=== PATIENT | male | born 1975 | race Caucasian/White ===

== ENCOUNTER 2017-10-17 09:48 | Observation (INO) ==
--- NOTE | 2017-10-17 10:13 | History & Physical Report ---
History of Present Illness Date: 10/17/17 Chief complaint: chest pain HPI: Mansoor is a 42 yo male who presented to Dr Vallejo's office this am with acute onset of chest tightness with radiation to his back occurring approx 3 hrs prior to presentation to clinic. Chest tightness is worse with deep inspiration , with minimal shortness of breath, no radiation to the neck or jaw or shoulder. Patient is otherwise healthy other than history of GERD and smoking. He denies any similar episode in the past. Denies any TIA or CVA symptoms. In the office, EKG showed normal sinus rhythm, no acute ischemic changes. CXR appeared normal. Patient received sublingual nitroglycerin 0.4 mg chest pain resolved completely, pain re-occurred and patient was given a second nitroglycerin with some relief. His vital signs were stable: blood pressure 130/ 80 with a pulse of 86, temperature 98.6, O2 sat 98% on RA. Dr. Vallejo contacted Dr. Marinelli to arrange a direct admit for observation. Dr. Vallejo had also discussed case with Dr. Greenwood who recommended hospitalist admission with consult to him. Patient has a h/o depression/anxiety. Previously on antidepressants, but states he stopped them because he didn't have insurance. He states that he has "good days and bad days." He has never had CP r/t his anxiety. He states he has GERD but only takes Prevacid for sxs which is approx 3x/wk. Review of Systems All systems PM: 10-point ROS was reviewed, no additional remarkable complaints except (chest and back tightness with deep breathing, a.m. "smoker's cough") Past Medical History Medical History: Medical History (Last Updated 10/17/17 @ 11:09 by VICKIE Geronimo) Anxiety and depression GERD (gastroesophageal reflux disease) Headache PTSD (post-traumatic stress disorder) Surgical History: vasectomy Family History: Family History F - alive and well M - alive and well Family History: No Significant Family History - Social History Smoking status: Current every day smoker (1ppd sicne age 15) Substance use type: does not use Alcohol intake frequency: a few times a month Current occupational status: employed ([employer] in [place]) Current residence: Apartment/Private Home Social history: PCP - Dr. Collier Medications Home Medications Medication Instructions Recorded Confirmed Type Prevacid 1 tab PO Q4D PRN 10/17/17 10/17/17 History Allergies Allergy/AdvReac Type Severity Reaction Status Date / Time amoxicillin Allergy Verified 10/17/17 10:53 Penicillins Allergy Verified 10/17/17 10:53 rofecoxib [From Vioxx] Allergy Verified 10/17/17 10:53 Exam - Constitutional Present: no acute distress, well nourished, well developed - Routine HEENT Exam Head: Present: normocephalic, atraumatic Eye: Present: EOMI, PERRL ENT: Present: mucous membranes moist, oropharynx clear - Routine Neck Exam Present: supple. Absent: JVD, carotid bruit, lymphadenopathy, thyromegaly - Routine Respiratory Exam Present: CTA bilaterally. Absent: wheezes - Routine Cardiovascular Exam Present: RRR, no murmur - Routine Abdominal Exam Present: soft, normoactive bowel sounds. Absent: tenderness, distended - Routine Extremities Exam Present: no edema, normal capillary refill - Routine Skin Exam Present: dry, warm - Routine Neurological Exam Present: alert, oriented X3, CN II-XII intact - Routine Psychiatric Exam Present: normal affect, cooperative, anxious Results - Labs CBC & Chem 7: 10/17/17 10:37 10/17/17 10:37 - Imaging and Cardiology Chest x-ray Additional comments: Date of Exam: 10/17/17 INDICATION: R07.89 Other chest pain PROCEDURE: CHEST 2-VIEWS UPRIGHT (PA & LAT) FINDINGS: The lungs are clear without evidence of focal abnormal airspace opacity. There is no pleural effusion or pneumothorax. The heart size, mediastinal contours and pulmonary vascularity are within normal limits. There is no significant skeletal abnormality. IMPRESSION: No acute cardiopulmonary disease. Assessment and Plan Assessment and Plan: Assessment Acute chest pain - seems pleuritic. R/o cardiac. GERD Anxiety/Depression Leukocytosis -POA Plan Admit for OBS for CP r/o. CXR and EKG reviewed from Dr. Vallejo's office. Repeat EKG on admission. Check CBC, CMP, Troponin, D Dimer. Consult to Dr. Greenwood. Serial troponins. Telemetry. RT consult for smoking cessation. Nicotine patch if desired. Protonix for GERD and GI ppx. SCD's for DVT ppx. Full code. PCP-Dr Collier Discussed w/ Dr Marinelli, Divya Branham, PROGRAM OR PROJECT ADMINISTRATOR for Dr. Greenwood and nursing staff. 10/17/2017-2:50 PM-I examined the patient independently. I reviewed this chart, the patient history, and the PROGRAM OR PROJECT ADMINISTRATOR's/PA's documented findings as above. We discussed and formulated the assessment and plan as above with the additions below.-Dr. Marinelli Patient was seen this afternoon in his room. He stated he continued to have some pain in the right anterior and right lower posterior chest with deep inspiration. He states this started this morning. It improved with nitroglycerin and Dr. Lyons's office, but did not completely go away. He states he has a chronic "smoker's cough in the morning" that is unchanged. He denies any dyspnea. He denies any recent infections. He denies fevers or chills. He denies any new physical activity that might of caused a muscle strain. He has not had any recent injury that he is aware of. He's had no nausea or vomiting. He states he has frequent heartburn, but this felt very different. He is not having heartburn now. One of his grandfathers had bypass surgery, but he does not think it was in his 50s. On exam he is alert and oriented and in no acute distress. Neck is supple and carotids are silent. Chest is clear to auscultation bilaterally. Cardiovascular reveals a regular rate and rhythm without murmur S3, S4 or rubs. Abdomen is soft and nontender. Extremities reveal no edema. Radial pulses are equal bilaterally. Skin is warm and dry and without rashes. Pertinent lab includes mild elevated white count of 11.4. Hemoglobin and platelets are normal. Neutrophils are 75%. D-dimer is less than 150 Comprehensive metabolic is entirely normal other than glucose of 138 and chloride of 110. Troponin is less than 0.012. Liver enzymes are normal. Triglycerides are elevated at 288, total cholesterol 164, LDL 83, HDL 23, VLDL 57. This was done nonfasting. Chest x-ray done today to clinic shows no acute cardiopulmonary disease EKG reveals normal sinus rhythm Impression Chest pain, most likely pleuritic Anxiety Tobaccoism History of hyperlipidemia History of migraine headaches Frequent GERD-current pain is very different Plan Continue telemetry. Serial troponin. Discuss with Dr. Greenwood. Hopefully home soon if testing is normal. Patient is quite concerned about cost of hospitalization due to lack of health insurance. I've asked the counseling case manager to discuss this with him. DVT Prophylaxis: SCD's GI Prophylaxis: Protonix Resuscitation Status: Full Code - Physician Narrative Physician: Kendra Marinelli MD Narrative: Date: 10/17/17 Time: 1006 Hospital Course Summary Disclaimer: The visit summary below is not to be considered part of the above Progress Note. Hospital Course: 10/17/17 Admit for OBS for CP r/o. CXR and EKG reviewed from Dr. Vallejo's office. Repeat EKG on admission. Check CBC, CMP, Troponin, D Dimer. Consult to Dr. Greenwood. Serial troponins. Telemetry. RT consult for smoking cessation. Nicotine patch if desired. Protonix for GERD and GI ppx. SCD's for DVT ppx. Full code. PCP-Dr Collier
[2017-10-17 10:22] VITALS: BMI 24.3
[2017-10-17] MEDS ORDERED: PANTOPRAZOLE 40 MG INJECTION IVP SCH (11:15)
[2017-10-17] MEDS ORDERED: NICOTINE 21 MG PATCH TD PRN (11:16)
[2017-10-17] MEDS ORDERED: NICOTINE PATCH REMOVAL TD PRN (11:16)
--- NOTE | 2017-10-17 13:51 | Cardiology Consult Note ---
<Justina Branham - Last Filed: 10/17/17 14:08> History of Present Illness Consult date: 10/17/17 Requesting physician: Kendra Marinelli Consult reason: chest pain Chief complaint: Chest pain History of present illness: Patient reports awakening this am with substernal pressure/internal ache radiating to his back. Denies associated diaphoresis or nausea. He denies previous similar symptoms. He got up and attempted his normal AM routine, due to persistent pain he decided to present to his PCP office for medical eval. He saw Dr. Zepeda, he was given one sl nitro with resolution of anterior chest pain and then a second sl nitro relieved the back pain. Dr. Greenwood was contacted and he was brought to [facility] [place] [facility] for ACS rule out. He is a normal weight 42yo male, who smokes 1 ppd, a personal hx of HLD. He reports anxiety/depression with recent unemployment and high stress. He has migraines 5-6 times a year for which he treats with Naproxen sodium. He admits a GERD history of 20 years, takes PPI 3-4 weekly. His paternal grandfather had CAD with CABG. Review of Systems All systems PM: 10-point ROS was reviewed, no additional remarkable complaints except - Cardiovascular Cardiovascular: Present: chest pain PFSH Patient Stated Medical History Migraine Yes Heart Murmur Yes Bronchitis Yes Pneumonia Yes Gastroesophageal Reflux Yes: on previcid Disease Hx Kidney Stones Yes Depression Yes Post Traumatic Stress Disorder Yes Substance Use Disorder Yes: marijuana Clinic Medical History (Last Updated 10/17/17 @ 11:09 by VICKIE Geronimo) Anxiety and depression (Acute Medical) GERD (gastroesophageal reflux disease) (Chronic Medical) Headache (Chronic Medical) PTSD (post-traumatic stress disorder) (Chronic Medical) Surgical History: vasectomy Family History: Family History (Last Updated 11/25/16 @ 08:54 by SANDRITA Rubin) Unknown Diabetes Heart trouble Cancer Kidney disease - Social History Smoking status: Current every day smoker (1ppd sicne age 15) Substance use type: does not use Alcohol intake frequency: a few times a month Current occupational status: employed ([employer] in [place]) Current residence: Apartment/Private Home Medications Home Medications Medication Instructions Recorded Confirmed Type Naproxen Sodium [Aleve] 1 cap PO BIDWM 5 Days #10 cap 10/17/17 Rx Prevacid 1 tab PO Q4D PRN 10/17/17 10/17/17 History Allergies Allergy/AdvReac Type Severity Reaction Status Date / Time amoxicillin Allergy Verified 10/17/17 10:53 Penicillins Allergy Verified 10/17/17 10:53 rofecoxib [From Vioxx] Allergy Verified 10/17/17 10:53 Exam Vital signs: Temperature 96.6 F L 10/17/17 10:33 Pulse Rate 68 10/17/17 10:33 Respiratory Rate 16 10/17/17 10:33 Blood Pressure 145/88 H 10/17/17 10:33 Pulse Oximetry 96 10/17/17 10:33 - Constitutional no acute distress, well nourished, cooperative - Routine HEENT Exam Head: Present: normocephalic, atraumatic Eye: Present: PERRL ENT: Present: mucous membranes moist Nose: moist mucous membranes - Routine Neck Exam Absent: JVD, carotid bruit - Routine Respiratory Exam Present: CTA bilaterally - Routine Cardiovascular Exam Present: RRR - Routine Abdominal Exam Present: soft, normoactive bowel sounds - Routine Back/Spine/Pelvis Exam Back/Spine: Present: full ROM - Routine Skin Exam Present: intact - Routine Neurological Exam Present: alert, oriented X3 - Routine Psychiatric Exam Present: normal affect, normal thought process, cooperative Results 10/17/17 10:37 10/17/17 10:37 Cardiac Enzymes 10/17/17 Range/Units 10:37 AST 23 (17-59) U/L Troponin I < 0.012 (0-0.12) ng/ml Lipids 10/17/17 Range/Units 10:37 Triglycerides 288 H (40-160) mg/dL Cholesterol 164 (132-199) mg/dL HDL Cholesterol 23 L (40-60) mg/dL Cholesterol/HDL Ratio 7.1 H (0-5.0) RATIO CBC 10/17/17 Range/Units 10:37 WBC 11.4 H (4.5-11.0) T/MM3 RBC 5.24 (4.50-5.90) M/MM3 Hgb 15.8 (13.5-17.5) GM/DL Hct 46.8 (41-53) % Plt Count 296 (130-400) T/MM3 Neut # (Auto) 8.6 H (1.8-7.7) T/MM3 Lymph # (Auto) 2.0 (1-4.8) T/MM3 [place] # (Auto) 0.6 (0-0.8) T/MM3 Eos # (Auto) 0.1 (0-0.5) T/MM3 Baso # (Auto) 0.0 (0-0.2) T/MM3 Comprehensive Metabolic Panel 10/17/17 Range/Units 10:37 Sodium 143 (136-146) MEQ/L Potassium 3.8 (3.6-5) MEQ/L Chloride 110 H (98-107) MEQ/L Carbon Dioxide 23 (22-30) MEQ/L BUN 9.0 (9-20) MG/DL Creatinine 0.9 (0.8-1.5) mg/dL Glucose 138 H (75-110) MG/DL Calcium 9.2 (8.4-10.2) MG/DL AST 23 (17-59) U/L ALT 25 (1-50) U/L Alkaline Phosphatase 76 (38-126) U/L Total Protein 7.2 (6.3-8.2) g/dL Albumin 4.3 (3.5-5.0) g/dL Intake and Output 10/16/17 10/17/17 10/17/17 22:59 06:59 14:59 Other: Weight 83.5 kg Patient Weight 10/18/17 06:59 Weight 83.5 kg - Imaging and Cardiology Echo: pending EKG results: image reviewed Imaging & Cardiology Narrative: 10/17/17 14:04 ECG NSR, no ischemic changes Assessment and Plan - Assessment and Plan (1) Chest pain Status: Acute (2) HLD (hyperlipidemia) Status: Acute (3) GERD (gastroesophageal reflux disease) Status: Acute - Assessment and Plan Admit observation, ACS rule out. ECG NSR no ischemic changes Initial troponin negative, will trend out x3. ECHO today, ordered, results pending Lipid panel shows LDL 83, triglycerides 288 Pt educated on smoking cessation. Hospital Course Summary Disclaimer: The visit summary below is not to be considered part of the above Progress Note. Hospital Course: 10/17/17 Admit for OBS for CP r/o. CXR and EKG reviewed from Dr. Vallejo's office. Repeat EKG on admission. Check CBC, CMP, Troponin, D Dimer. Consult to Dr. Greenwood. Serial troponins. Telemetry. RT consult for smoking cessation. Nicotine patch if desired. Protonix for GERD and GI ppx. SCD's for DVT ppx. Full code. PCP-Dr Collier <Deshaun Greenwood - Last Filed: 10/26/17 13:41> [facility] Patient Stated Medical History Migraine Yes Heart Murmur Yes Bronchitis Yes Pneumonia Yes Gastroesophageal Reflux Yes: on previcid Disease Hx Kidney Stones Yes Depression Yes Post Traumatic Stress Disorder Yes Substance Use Disorder Yes: marijuana Clinic Medical History (Last Updated 10/17/17 @ 11:09 by VICKIE Geronimo) Anxiety and depression (Acute Medical) GERD (gastroesophageal reflux disease) (Chronic Medical) Headache (Chronic Medical) PTSD (post-traumatic stress disorder) (Chronic Medical) Family History: Family History (Last Updated 11/25/16 @ 08:54 by Traci Gonzalez Maranda) Unknown Diabetes Heart trouble Cancer Kidney disease Exam Vital signs: Temperature 96.7 F L 10/17/17 15:15 Pulse Rate 49 L 10/17/17 15:15 Respiratory Rate 14 10/17/17 15:15 Blood Pressure 155/95 H 10/17/17 15:15 Pulse Oximetry 98 10/17/17 15:15 Results 10/17/17 10:37 10/17/17 10:37 Assessment and Plan - Attestation Attestation Narrative: 10/26/17 13:41 Recommendation After examining the patient I agree with the above assessment. I am involved in the formulation of the patient's plan of care. - Assessment and Plan (1) Chest pain Status: Acute (2) HLD (hyperlipidemia) Status: Acute (3) GERD (gastroesophageal reflux disease) Status: Acute Hospital Course Summary Disclaimer: The visit summary below is not to be considered part of the above Progress Note.
[2017-10-17 15:18] VITALS: BP 155/95; PULSE 49; RESP 14; TEMP 96.7; O2SAT 98
[2017-10-17] MEDS ORDERED: KETOROLAC 30 MG/ML INJECTION IVP ONE (17:08)
--- NOTE | 2017-10-18 09:02 | Echocardiogram ---
DATE OF PROCEDURE October 17, 2017 REFERRING PHYSICIAN Kendra Marinelli MD PRIMARY CARE PHYSICIAN Romeo Lyons MD This is a two-dimensional echo with spectral Doppler, color-flow and M-mode. It was obtained in a patient with chest pain. Left atrial dimension is normal. Left ventricular end-diastolic dimension is normal. Left ventricle wall thickness is normal. LV systolic function is normal with ejection fraction of about 60%. Right atrium is normal. Right ventricle is normal. Aortic root dimension is normal. Mitral, aortic, tricuspid, pulmonary valves are morphologically normal with trace of tricuspid regurgitation with normal estimated pulmonary artery systolic pressure of 25. There is no pericardial effusion. IMPRESSION 1. Essentially normal echo with trivial tricuspid regurgitation. MTDD
== END 2017-10-17 18:55 | disposition home or self-care (01) ==
LOC: MED
PROVIDERS: ADMIT Internal Medicine; ATTEND Internal Medicine